=== PATIENT | female | born 1940 | race Two or more races ===

== ENCOUNTER → 2023-08-14 | Emergency (ER) | payer OTHER ==
[~2023-08-14] VITALS: Ht 154.9 cm; Wt 68.0 kg
[~2023-08-14] MED LIST: ATACAND4 MG; CARDURA1 MG; SIMVASTATIN5 MG
[2023-08-14 13:52] LABS: HEMATOCRIT 36.3 % (36.0-45.00); HEMOGLOBIN 12.2 g/dL (12.0-15.00); MEAN CELL VOLUME 87.2 fL (80.00-100.00); MEAN CORPUSCULAR HEMOGLOBIN 29.3 pg (27.00-32.0); MEAN CORPUSCULAR HGB CONC 33.6 g/dl (32.0-36.0); PLATELET COUNT 184 K/uL (150-450); RED BLOOD COUNT 4.16 M/uL (4.00-6.00); RED CELL DISTRIBUTION WIDTH 13.8 % (11.5-14.5)
== END | disposition home or self-care (01) ==
LOC: ER 10:52
PROVIDERS: General Practice
DX: S00.93XA Contusion of unspecified part of head, initial encounter (principal); W19.XXXA Unspecified fall, initial encounter; Y93.9 Activity, unspecified; Y92.89 Other specified places as the place of occurrence of the external cause; Y99.9 Unspecified external cause status; J10.1 Influenza due to other identified influenza virus with other respiratory manifestations; Z20.822 Contact with and (suspected) exposure to COVID-19; R42 Dizziness and giddiness; Z85.3 Personal history of malignant neoplasm of breast; I10 Essential (primary) hypertension
CPT/HCPCS: 36415; 96372; 99284; J1885

== ENCOUNTER 2024-07-16 16:49 | Inpatient (IN) | payer OTHER ==
[~2024-07-16] VITALS: Ht 157.5 cm; Wt 68.0 kg
--- NOTE | 2024-07-16 16:51 | NUR ---
SE LLAMA A PTE PARA [place] DE [facility]ITALES Y RODRIGUEZ HIJA VERBALIZA LA PTE ESTA AUN BUSCANDO ESTACIONAMIENTO.
--- NOTE | 2024-07-16 17:03 | NUR ---
SE LLAMA A PTE PARA [place] DE [place] Y LA MISMA NO SE ENCUENTRA EN MICHAEL DE ESPERA.
--- NOTE | 2024-07-16 17:12 | NUR ---
SE RECIBE FEMINA ALERTA Y ORIENTADA X3 CUAL REFIERE PRESENTA VOMITOS X4, DOLOR Y DISTENSION ABD TULIO EL CARLOS DE HOY. VERBALIZA DOLOR ABD AL TACTO. BP MANUAL 170/80.
[2024-07-16] MEDS ORDERED: ONDANSETRON HCL 2 MG/ML VIAL IV ONE (18:30)
[2024-07-16] MEDS ORDERED: FAMOTIDINE/PF 20 MG/2 ML VIAL IV ONE (18:30)
[2024-07-16] MEDS ORDERED: 0.9 % SODIUM CHLORIDE 500 ML IV ONE (18:30)
--- NOTE | 2024-07-16 18:43 | NUR ---
SE EDUCA A PTE SOBRE TX MEDICO, SE TYSON MUESTRAS DE LABORATORIO UTILIZANDO MEDIDAS ASEPTICAS. SE COLOCA H/L ESTELITA DE EDEMA. SE ADMINISTRAN MEDICAMENTOS LOS CUALES TOLERA. SE NOTIFICA ESTUDIO DE SONOGRAFIA PENDIENTE A REALIZAR.
[2024-07-16 19:11] LABS: HEMATOCRIT 38.1 % (36.0-45.00); HEMOGLOBIN 12.9 g/dL (12.0-15.00); MEAN CELL VOLUME 87.2 fL (80.00-100.00); MEAN CORPUSCULAR HEMOGLOBIN 29.5 pg (27.00-32.0); MEAN CORPUSCULAR HGB CONC 33.9 g/dl (32.0-36.0); PLATELET COUNT 215 K/uL (150-450); RED BLOOD COUNT 4.37 M/uL (4.00-6.00); RED CELL DISTRIBUTION WIDTH 13.5 % (11.5-14.5)
[2024-07-16] MEDS ORDERED: KETOROLAC TROMETHAMINE 30 MG VIAL IV ONE (20:00)
[2024-07-16 20:36] LABS: ALBUMIN 4.3 gm/dL (3.4-5.0); BILIRUBIN TOTAL 1.35 mg/dL (0.3-1.2); BILIRUBIN,CONJUGATED 0.89 mg/dL (0.0-0.2); BILIRUBIN,UNCONJUGATED 0.46 mg/dL (0.0-0.6); CALCIUM 9.5 mg/dL (8.5-10.1); CREATININE SERUM 0.92 mg/dL (0.55-1.02); GFR 58.3; GLOBULINA 3.6 G/DL (2.4-3.5); POTASSIUM 4.15 mEq/L (3.5-5.1); TOTAL PROTEIN 7.9 gm/dL (6.4-8.2)
[2024-07-16 22:13] LABS: PH,URINE 7.5 (5.0-8.0); URINE APPEARANCE Clear; URINE BILIRRUBIN Negative (NEGATIVE); URINE BLOOD Negative; URINE COLOR Dark Yellow; URINE GLUCOSE Negative (NEGATIVE); URINE KETONE Negative (NEGATIVE); URINE LEUKOCYTE Negative; URINE NITRATE Negative
[2024-07-16 22:16] LABS: URINE BACTERIA 40.3 uL (0.0-1933); URINE EPITHELIAL CELLS 5.6 uL (0.0-38.8); URINE RBC 32.8 uL (0.0-20.8); URINE WBC 31.8 uL (0.0-23.2)
[2024-07-16 22:18] LABS: URINE CAST 0.14 uL (0.0-1.40); URINE PROTEIN 100 (NEGATIVE)
[2024-07-17] MEDS ORDERED: MORPHINE SULFATE 2 MG/ML SYRINGE IV ONE (00:15)
[2024-07-17] MEDS ORDERED: SODIUM CHLORIDE 0.45 % 1,000 ML IV SCH (14:45)
[2024-07-17] MEDS ORDERED: FAMOTIDINE/PF 20 MG/2 ML VIAL IV SCH (14:46)
[2024-07-17] MEDS ORDERED: LACTOBACILLUS ACIDOPHILUS 1 CAP CAP PO SCH (14:46)
[2024-07-17] MEDS ORDERED: PIPERACILLIN/TAZOBACTAM SODIUM 3.375 GM in DEXTROSE 5 % IN WATER 100 ML IV SCH (14:46)
[2024-07-17] MEDS ORDERED: ONDANSETRON HCL 4 MG in DEXTROSE 5 % IN WATER 50 ML IV SCH (14:47)
[2024-07-17] MEDS ORDERED: CANDESARTAN CILEXETIL 32 MG TABLET PO SCH (14:49)
[2024-07-17] MEDS ORDERED: HYDROCHLOROTH12.5 M2 PO (14:55)
[2024-07-17] MEDS ORDERED: SYNTHROID100 MCG PO (14:56)
[2024-07-17] MEDS ORDERED: CRESTOR40 MG PO (14:57)
[2024-07-17] MEDS ORDERED: MORPHINE SULFATE 2 MG/ML CARTRIDGE IV PRN (15:00)
[2024-07-17] MEDS ORDERED: ACETAMINOPHEN 500 MG GEL..CAP PO PRN (15:00)
[2024-07-17 16:54] VITALS: BP 159/68; O2SAT 97
[2024-07-17] MEDS ORDERED: DOXAZOSIN MESYLATE 2 MG TABLET PO SCH (21:00)
[2024-07-17 21:54] VITALS: BP 192/76
[2024-07-18 02:05] VITALS: BP 176/76; O2SAT 95
[2024-07-18] MEDS ORDERED: LEVOTHYROXINE SODIUM 100 MCG TABLET PO SCH (06:00)
[2024-07-18 07:58] LABS: INR 1.03; PARTIAL THROMBOPLASTIN TIME 25.9 SECONDS (22.0-34.0); PROTHROMBIN TIME 11.2 SECONDS (9.0-11.5)
[2024-07-18 08:07] LABS: HEMATOCRIT 30.5 % (36.0-45.00); HEMOGLOBIN 10.5 g/dL (12.0-15.00); MEAN CELL VOLUME 86.8 fL (80.00-100.00); MEAN CORPUSCULAR HEMOGLOBIN 29.9 pg (27.00-32.0); MEAN CORPUSCULAR HGB CONC 34.4 g/dl (32.0-36.0); PLATELET COUNT 175 K/uL (150-450); RED BLOOD COUNT 3.52 M/uL (4.00-6.00); RED CELL DISTRIBUTION WIDTH 13.8 % (11.5-14.5)
[2024-07-18 08:09] LABS: ALBUMIN 3.2 gm/dL (3.4-5.0); BILIRUBIN TOTAL 0.61 mg/dL (0.3-1.2); CALCIUM 8.4 mg/dL (8.5-10.1); CHOL HDL RATIO 2.1 (0-5.0); CREATININE SERUM 0.97 mg/dL (0.55-1.02); GFR 54.84; GLOBULINA 2.7 G/DL (2.4-3.5); POTASSIUM 3.69 mEq/L (3.5-5.1); T4 FREE 1.18 NG/ML (0.76-1.46); TOTAL PROTEIN 5.9 gm/dL (6.4-8.2); TSH 4.81 uIU/mL (0.358-3.74)
[2024-07-18 08:11] LABS: C-REACTIVE PROTEIN 0.62 MG/DL (0.00-0.29)
[2024-07-18 08:22] LABS: ERYTHROCYTE SEDIMENTATION RATE 7 mm/hr
[2024-07-18 10:20] VITALS: BP 176/82; O2SAT 96
[2024-07-18 11:04] LABS: PH,URINE 6.5 (5.0-8.0); URINE APPEARANCE Clear; URINE BILIRRUBIN Negative (NEGATIVE); URINE BLOOD Negative; URINE COLOR Yellow; URINE GLUCOSE Negative (NEGATIVE); URINE KETONE Negative (NEGATIVE); URINE LEUKOCYTE Trace; URINE NITRATE Negative; URINE PROTEIN Negative (NEGATIVE); URINE UROBILINOGEN 0.2 E.U./dl
[2024-07-18 11:05] LABS: URINE EPITHELIAL CELLS 8.8 uL (0.0-38.8); URINE RBC 7.6 uL (0.0-20.8); URINE WBC 20.2 uL (0.0-23.2)
[2024-07-18 11:08] LABS: URINE BACTERIA 3.6 uL (0.0-1933); URINE CAST 0.14 uL (0.0-1.40)
[2024-07-18 17:54] VITALS: BP 160/89; O2SAT 99
[2024-07-19 03:44] VITALS: BP 160/77; O2SAT 96
[2024-07-19] MEDS ORDERED: ENALAPRILAT DIHYDRATE 1.25 MG/ML VIAL IV PRN (05:15)
[2024-07-19 10:58] VITALS: BP 189/70; O2SAT 98
[2024-07-19 18:01] VITALS: BP 155/72; O2SAT 99
[2024-07-20 02:12] VITALS: BP 160/63; O2SAT 96
[2024-07-20 07:17] LABS: HEMATOCRIT 34.1 % (36.0-45.00); HEMOGLOBIN 11.4 g/dL (12.0-15.00); MEAN CELL VOLUME 87.7 fL (80.00-100.00); MEAN CORPUSCULAR HEMOGLOBIN 29.3 pg (27.00-32.0); MEAN CORPUSCULAR HGB CONC 33.4 g/dl (32.0-36.0); PLATELET COUNT 186 K/uL (150-450); RED BLOOD COUNT 3.89 M/uL (4.00-6.00); RED CELL DISTRIBUTION WIDTH 13.7 % (11.5-14.5)
[2024-07-20 08:50] LABS: ALBUMIN 3.5 gm/dL (3.4-5.0); ALKALINE PHOSPHATASE 49 U/L (50-136); ALT/SGPT 133 U/L (12-78); ANION GAP 10 (10.0-20.0); AST/SGOT 52 U/L (15-37); BILIRUBIN TOTAL 0.53 mg/dL (0.3-1.2); BLOOD UREA NITROGEN 9 mg/dL (7-18); BUN CREA RATIO 9 (7.0-25.0); CALCIUM 9.1 mg/dL (8.5-10.1); CARBON DIOXIDE 24 mEq/L (21-32); CHLORIDE 115 mmol/L (98-107); CREATININE SERUM 1.03 mg/dL (0.55-1.02); GFR 51.17; GLUCOSE FASTING 87 mg/dL (65-100); OSMOLALITY SERUM 287 MOSM/KG (275-295); PHOSPHOROUS 3.5 mg/dL (2.5-4.9); POTASSIUM 3.74 mEq/L (3.5-5.1); SODIUM 145 mmol/L (136-145); TOTAL PROTEIN 6.5 gm/dL (6.4-8.2)
[2024-07-20 08:52] LABS: C-REACTIVE PROTEIN < 0.29 MG/DL (0.00-0.29)
[2024-07-20 09:04] VITALS: BP 158/71; O2SAT 97
[2024-07-20] MEDS ORDERED: INTESTINEX680 M1 PO (12:53)
[2024-07-20] MEDS ORDERED: SYNTHROID100 MCG PO (12:53)
[2024-07-20] MEDS ORDERED: DOXAZOSIN MESYLA2 MG PO (12:53)
[2024-07-20] MEDS ORDERED: ATACAND32 MG PO (12:53)
[2024-07-20] MEDS ORDERED: LEVOFLOXACIN750 MG PO (12:53)
[2024-07-20] MEDS ORDERED: CRESTOR40 MG PO (12:53)
== END 2024-07-20 15:36 | disposition home or self-care (01) | DRG 445 ==
LOC: ER 16:51 → MEDJ 07-17 15:08
PROVIDERS: Emergency Medicine; Internal Medicine Geriatric Medicine; ADMIT Internal Medicine; ATTEND Internal Medicine
PROC: BF37ZZZ Magnetic Resonance Imaging (MRI) of Pancreas (ICD-10-PCS; principal; 2024-07-17)
PROC: B24BZZZ Ultrasonography of Heart with Aorta (ICD-10-PCS; 2024-07-17)
DX: K80.00 Calculus of gallbladder with acute cholecystitis without obstruction (principal); N17.9 Acute kidney failure, unspecified; E86.0 Dehydration; E03.9 Hypothyroidism, unspecified; I10 Essential (primary) hypertension

== ENCOUNTER 2025-06-13 21:12 | Inpatient (IN) | payer OTHER ==
[~2025-06-13] VITALS: Ht 154.9 cm; Wt 66.7 kg
[~2025-06-13 21:12] MED LIST changes: +ATACAND32 MG PO; +CRESTOR40 MG PO; +DOXAZOSIN MESYLA2 MG PO; +HYDROCHLOROTH12.5 M2 PO; +INTESTINEX680 M1 PO; +LEVOFLOXACIN750 MG PO; +SYNTHROID100 MCG PO
--- NOTE | 2025-06-13 21:21 | NUR ---
SE RECIBE PACIENTE ALERTA Y ORIENTADA X3 LA CUAL REFIERE VENRI A CAUSA DE DOLOR ABDOMINAL DESDE LA TARDE DE HOY. SE MIDNE S/V Y SE UBICA.
[2025-06-13] MEDS ORDERED: 0.9 % SODIUM CHLORIDE 1,000 ML IV ONE (22:00)
[2025-06-13] MEDS ORDERED: ONDANSETRON HCL 2 MG/ML VIAL IV ONE (22:00)
[2025-06-13] MEDS ORDERED: FAMOtidine 10 MG/ML (4ML VIAL) IV ONE (22:00)
[2025-06-13] MEDS ORDERED: FAMOTIDINE/PF 20 MG/2 ML VIAL ONE (22:00)
[2025-06-13] MEDS ORDERED: ONDANSETRON HCL 2 MG/ML VIAL ONE (22:00)
--- NOTE | 2025-06-13 22:10 | NUR ---
RN CANCEL EDUCA PTE SOBRE TX Y ESTA REFIERE ENTENDER Y ACEPTAR. SE PROCEDE A COLECTAR MUESTRAS DE LABORATORIO BAJO MEDIDAS ASEPTICAS. SE CANALIZA Y SE ADMINISTRAN MEDICAMENTOS IVAN ORDEN MEDICA.
[2025-06-13 22:17] LABS: BASO % 0.6 % (0.1-1.2); EOS # 0.07 (0.04-0.54); EOS % 0.8 % (0.7-7.0); LYMPH # 1.08 (1.18-3.74); LYMPH % 12.4 % (19.3-53.1); MEAN PLATELET VOLUME 10.50 fl (9.4-12.4); MONO # 0.61 (0.24-0.82); MONO % 7.0 % (4.7-12.5); NEUT # 6.88 (1.56-6.13); NEUT % 78.7 % (34.0-71.1); RED CELL DISTRIBUTION WIDTH 12.8 % (11.6-14.4)
[2025-06-13 22:31] LABS: ALT/SGPT 46.0 U/L (12-78); AST/SGOT 72.0 U/L (15-37); BILIRUBIN TOTAL 0.64 mg/dL (0.3-1.2); BUN CREA RATIO 19.0 (7.0-25.0); CREATININE SERUM 1.02 mg/dL (0.55-1.02); GFR 51.63; GLOBULINA 3.7 G/DL (2.4-3.5); GLUCOSE FASTING 122.0 mg/dL (65-100); OSMOLALITY SERUM 289.0 MOSM/KG (275-295)
--- NOTE | 2025-06-13 23:38 | NUR ---
SE NOTIFICA ESTUDIO PENDIENTE A SONOGRAFISTA CHRISTIANNE.
--- NOTE | 2025-06-13 23:40 | NUR ---
PTE REFIERE ULTIMA COMIDA A LAS 1700 06/13/25 APROX.
[2025-06-14 01:16] LABS: URINE APPEARANCE Clear; URINE BILIRRUBIN Negative (NEGATIVE); URINE BLOOD Negative; URINE COLOR Yellow; URINE GLUCOSE Negative (NEGATIVE); URINE KETONE Negative (NEGATIVE); URINE LEUKOCYTE Negative; URINE NITRATE Negative; URINE PROTEIN Negative (NEGATIVE); URINE UROBILINOGEN 0.2 E.U./dl
[2025-06-14 01:18] LABS: URINE BACTERIA 4.7 uL (0.0-1933); URINE RBC 6.0 uL (0.0-20.8)
[2025-06-14 01:19] LABS: URINE CAST 0.00 uL (0.0-1.40); URINE EPITHELIAL CELLS 0.7 uL (0.0-38.8); URINE WBC 0.9 uL (0.0-23.2)
[2025-06-14] MEDS ORDERED: POTASSIUM BICARBONATE/CIT AC 25 MEQ TABLET.EFF PO ONE (01:30)
--- NOTE | 2025-06-14 07:18 | NUR ---
PACIENTE FEMINA DE 85 [address] UBICADA EN BAKARI CON #6 CON BARANDAS ELEVADAS Y EN RODRIGUEZ NIVEL MAS BAJO POR PRECAUCION A CAIDAS. LA MISMA SE ENCUENTRA EN COMPANIA DE FAMILIAR A QUIENES SE LES ORIENTA SOBRE CONTINUIDAD DE TRATAMIENTO MEDICO Y REFIERE ENTENDER, SE OBSERVA CON BUEN PATRON RESPIRATORIO A ROOM AIR, PACIENTE CON EXTREMIDADES SUPERIORES PRESENTES, LIBRES DE EDEMA Y PREVIAMENTE CANALIZADA EN R+ ARM CON VENOPUNCION PATENTE, ESTELITA DE EDEMA Y RECIBIENDO 0.9%NSS BAJANDO A 100ML/HR. AL MOMENTO PACIENTE ORINANDO EXPONTANEO. SE OBSERVA CON EXTREMIDADES INFERIORES PRESENTES, LIBRES DE EDEMA. SE MANTIENE BAJO OBSERVACION EN ESPERA DE EVALUACION DE DR FREEDOM SHARP.
[2025-06-14] MEDS ORDERED: CIPROFLOXACIN IN 5 % DEXTROSE 200 ML IV SCH (12:26)
[2025-06-14] MEDS ORDERED: FAMOTIDINE/PF 20 MG in 0.9 % SODIUM CHLORIDE 8 ML IV PUSH SCH (12:27)
[2025-06-14] MEDS ORDERED: CANDESARTAN CILEXETIL 32 MG TABLET PO SCH (12:28)
[2025-06-14] MEDS ORDERED: DOXAZOSIN MESYLATE 2 MG TABLET PO SCH (12:29)
[2025-06-14] MEDS ORDERED: ACETAMINOPHEN 325 MG TABLET PO PRN (12:30)
[2025-06-14] MEDS ORDERED: 0.9 % SODIUM CHLORIDE 1,000 ML IV SCH (12:30)
[2025-06-14] MEDS ORDERED: MORPHINE SULFATE 2 MG/ML SYRINGE IV PRN (12:30)
[2025-06-14] MEDS ORDERED: ONDANSETRON HCL 4 MG in 0.9 % SODIUM CHLORIDE 50 ML IV PRN (12:30)
[2025-06-14 13:08] VITALS: BP 110/80
[2025-06-14] MEDS ORDERED: METRONIDAZOLE/SODIUM CHLORIDE 500 MG/100 ML PIGGYBACK IV ONE (13:31)
[2025-06-14] MEDS ORDERED: FAMOTIDINE/PF 20 MG/2 ML VIAL ONE (13:31)
[2025-06-14] MEDS ORDERED: CIPROFLOXACIN IN 5 % DEXTROSE 400 MG/200 ML PIGGYBAG IV ONE (13:31)
[2025-06-14 14:05] LABS: INR 1.01
[2025-06-15] VITALS: BP 143/68; O2SAT 97
[2025-06-15 01:47] VITALS: BP 144/77; O2SAT 96
[2025-06-15] MEDS ORDERED: LEVOTHYROXINE SODIUM 100 MCG TABLET PO SCH (06:00)
[2025-06-15 08:15] VITALS: BP 137/65; O2SAT 97
[2025-06-15] MEDS ORDERED: POTASSIUM CHLORIDE IN WATER 40 MEQ/100 ML PIGGYBAG IV SCH (13:00)
[2025-06-15 15:56] VITALS: BP 150/72; O2SAT 97
[2025-06-16] MEDS ORDERED: PIPERACILLIN/TAZOBACTAM SODIUM 3.375 GM in 0.9 % SODIUM CHLORIDE 100 ML IV SCH
[2025-06-16 01:05] VITALS: BP 138/71; O2SAT 100
[2025-06-16 06:59] LABS: BASO % 0.7 % (0.1-1.2); EOS # 0.22 (0.04-0.54); EOS % 5.3 % (0.7-7.0); LYMPH # 1.45 (1.18-3.74); LYMPH % 34.9 % (19.3-53.1); MEAN PLATELET VOLUME 10.90 fl (9.4-12.4); MONO # 0.41 (0.24-0.82); MONO % 9.9 % (4.7-12.5); NEUT # 2.04 (1.56-6.13); NEUT % 49.0 % (34.0-71.1); RED CELL DISTRIBUTION WIDTH 13.2 % (11.6-14.4)
[2025-06-16 07:30] VITALS: BP 182/75; O2SAT 96
[2025-06-16 07:30] LABS: ALT/SGPT 57.0 U/L (12-78); AST/SGOT 37.0 U/L (15-37); BILIRUBIN TOTAL 0.57 mg/dL (0.3-1.2); BUN CREA RATIO 12.0 (7.0-25.0); CREATININE SERUM 0.66 mg/dL (0.55-1.02); GFR 85.32; GLOBULINA 2.7 G/DL (2.4-3.5); GLUCOSE FASTING 82.0 mg/dL (65-100); OSMOLALITY SERUM 284.0 MOSM/KG (275-295)
[2025-06-16] MEDS ORDERED: PANTOPRAZOLE SODIUM 40 MG/VIAL VIAL IV PUSH SCH (09:20)
[2025-06-16 15:20] VITALS: BP 183/71; O2SAT 97
[2025-06-17 01:02] VITALS: BP 134/61; O2SAT 98
[2025-06-17 08:00] VITALS: BP 162/63; O2SAT 96
[2025-06-17] MEDS ORDERED: DOXAZOSIN MESYLA2 MG PO (09:40)
[2025-06-17] MEDS ORDERED: ATACAND32 MG PO (09:40)
[2025-06-17] MEDS ORDERED: SYNTHROID100 MCG PO (09:41)
[2025-06-17] MEDS ORDERED: AMOX1TAB5 PO (09:49)
== END 2025-06-17 14:17 | disposition home or self-care (01) | DRG 446 ==
LOC: ER 21:13 → SEC-K 06-14 12:31 → SURG 06-14 12:31
PROVIDERS: General Practice; Internal Medicine Infectious Disease; Preventive Medicine Public Health & General Preventive Medicine; ADMIT Internal Medicine; ATTEND Internal Medicine
PROC: BW21YZZ Computerized Tomography (CT Scan) of Abdomen and Pelvis using Other Contrast (ICD-10-PCS; 2025-06-13)
PROC: BW40ZZZ Ultrasonography of Abdomen (ICD-10-PCS; 2025-06-13)
PROC: CF141ZZ Planar Nuclear Medicine Imaging of Gallbladder using Technetium 99m (Tc-99m) (ICD-10-PCS; principal; 2025-06-15)
PROC: BW30YZZ Magnetic Resonance Imaging (MRI) of Abdomen using Other Contrast (ICD-10-PCS; 2025-06-15)
PROC: BW30ZZZ Magnetic Resonance Imaging (MRI) of Abdomen (ICD-10-PCS; 2025-06-15)
DX: K81.1 Chronic cholecystitis (principal); N28.1 Cyst of kidney, acquired; K82.8 Other specified diseases of gallbladder; E87.6 Hypokalemia; D64.9 Anemia, unspecified; I10 Essential (primary) hypertension; E03.9 Hypothyroidism, unspecified; E78.5 Hyperlipidemia, unspecified; Z85.3 Personal history of malignant neoplasm of breast
CPT/HCPCS: 74183

== ENCOUNTER 2025-07-13 11:00 | Inpatient (IN) | payer OTHER ==
[2025-07-05 11:08] VITALS: BP 170/87
[2025-07-05 11:46] LABS: URINE APPEARANCE Clear; URINE BILIRRUBIN Negative (NEGATIVE); URINE BLOOD Negative; URINE COLOR Yellow; URINE GLUCOSE Negative (NEGATIVE); URINE KETONE Negative (NEGATIVE); URINE LEUKOCYTE Small; URINE NITRATE Negative; URINE PROTEIN Negative (NEGATIVE); URINE UROBILINOGEN 1.0 E.U./dl
[2025-07-05 11:48] LABS: URINE BACTERIA 29.9 uL (0.0-1933); URINE EPITHELIAL CELLS 10.1 uL (0.0-38.8); URINE RBC 6.8 uL (0.0-20.8); URINE WBC 69.7 uL (0.0-23.2)
[2025-07-05 11:49] LABS: URINE CAST 0.58 uL (0.0-1.40)
[2025-07-05 12:07] LABS: BASO % 0.7 % (0.1-1.2); EOS # 0.12 (0.04-0.54); EOS % 2.8 % (0.7-7.0); LYMPH # 1.50 (1.18-3.74); LYMPH % 35.2 % (19.3-53.1); MEAN PLATELET VOLUME 11.40 fl (9.4-12.4); MONO # 0.38 (0.24-0.82); MONO % 8.9 % (4.7-12.5); NEUT # 2.22 (1.56-6.13); NEUT % 52.2 % (34.0-71.1); RED CELL DISTRIBUTION WIDTH 13.0 % (11.6-14.4)
[2025-07-05 12:36] LABS: INR 0.99
[2025-07-05 12:51] LABS: ALT/SGPT 22.0 U/L (12-78); AST/SGOT 20.0 U/L (15-37); BILIRUBIN TOTAL 0.42 mg/dL (0.3-1.2); BUN CREA RATIO 16.0 (7.0-25.0); CREATININE SERUM 0.92 mg/dL (0.55-1.02); GFR 58.16; GLOBULINA 3.7 G/DL (2.4-3.5); GLUCOSE FASTING 99.0 mg/dL (65-100); OSMOLALITY SERUM 290.0 MOSM/KG (275-295)
[~2025-07-13] VITALS: Ht 152.4 cm; Wt 64.0 kg
[~2025-07-13 11:00] MED LIST changes: +AMOX1TAB5 PO
[2025-07-13] MEDS ORDERED: CEFAZOLIN SODIUM 1,000 MG VIAL ONE (12:13)
[2025-07-13] MEDS ORDERED: SUGAMMADEX SODIUM 200 MG/2 ML VIAL IV ONE (18:46)
[2025-07-13] MEDS ORDERED: MORPHINE SULFATE 4 MG/ML CARTRIDGE IV PRN (19:00)
[2025-07-13] MEDS ORDERED: hydrALAZINE HCL 20 MG VIAL ONE (20:39)
[2025-07-13] MEDS ORDERED: hydrALAZINE HCL 20 MG VIAL IV ONE (20:45)
[2025-07-13 21:50] VITALS: BP 150/64; O2SAT 95
[2025-07-13 22:23] LABS: ALT/SGPT 30.0 U/L (12-78); AST/SGOT 42.0 U/L (15-37); BILIRUBIN TOTAL 0.36 mg/dL (0.3-1.2); BILIRUBIN,CONJUGATED 0.13 mg/dL (0.0-0.2)
[2025-07-14] MEDS ORDERED: KETOROLAC TROMETHAMINE 30 MG VIAL IM SCH
[2025-07-14 01:02] VITALS: BP 149/63; O2SAT 96
[2025-07-14 08:00] VITALS: BP 119/56; O2SAT 95
[2025-07-14 08:42] LABS: BASO % 0.4 % (0.1-1.2); EOS # 0.03 (0.04-0.54); EOS % 0.4 % (0.7-7.0); LYMPH # 1.34 (1.18-3.74); LYMPH % 17.7 % (19.3-53.1); MEAN PLATELET VOLUME 11.20 fl (9.4-12.4); MONO # 0.61 (0.24-0.82); MONO % 8.0 % (4.7-12.5); NEUT # 5.57 (1.56-6.13); NEUT % 73.4 % (34.0-71.1); RED CELL DISTRIBUTION WIDTH 12.7 % (11.6-14.4)
[2025-07-14] MEDS ORDERED: PANTOPRAZOLE SODIUM 40 MG/VIAL VIAL IV SCH (09:00)
[2025-07-14 09:14] LABS: ALT/SGPT 29.0 U/L (12-78); AST/SGOT 41.0 U/L (15-37); BILIRUBIN TOTAL 0.52 mg/dL (0.3-1.2); BUN CREA RATIO 16.0 (7.0-25.0); CREATININE SERUM 0.89 mg/dL (0.55-1.02); GFR 60.42; GLOBULINA 2.9 G/DL (2.4-3.5); GLUCOSE FASTING 91.0 mg/dL (65-100); OSMOLALITY SERUM 283.0 MOSM/KG (275-295)
[2025-07-14 14:00] VITALS: BP 110/61; O2SAT 98
[2025-07-14] MEDS ORDERED: ENOXAPARIN SODIUM 40 MG/0.4 ML SYRINGE SUBCUTANEO SCH (17:00)
== END 2025-07-14 18:07 | disposition home or self-care (01) | DRG 419 ==
LOC: CIR.AMB 11:00 → SURG 21:09
PROVIDERS: General Practice; ADMIT Student in an Organized Health Care Education/Training Program; ATTEND Student in an Organized Health Care Education/Training Program
PROC: 0FT44ZZ Resection of Gallbladder, Percutaneous Endoscopic Approach (ICD-10-PCS; principal; 2025-07-13 08:45)
DX: K80.10 Calculus of gallbladder with chronic cholecystitis without obstruction (principal)